=== PATIENT | male | born 1960 | race Caucasian/White ===

== ENCOUNTER 2019-07-09 15:44 | Emergency (ER) | payer BC ==
--- NOTE | 2019-07-09 16:18 | EDM.PDOC ---
ED HPI GENERAL MEDICAL PROBLEM - General Chief Complaint: Syncope Stated Complaint: FELL AND INJURED RIGHT HAND/THROWING UP Time Seen by Provider: 07/09/19 16:16 Source of Information: Reports: Patient History Limitations: Reports: No Limitations - History of Present Illness INITIAL COMMENTS - FREE TEXT/NARRATIVE: HISTORY AND PHYSICAL: History of present illness: Patient is a 58-year-old male who presents to the emergency room after a syncopal event. 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 He states the day was a normal day, he had eaten breakfast and drank his coffee. About an hour [employer] he had gone out to his garage to work on a vehicle. He states he had several episodes where he felt lightheaded and had to catch himself. He had went from a squatting position to standing and had a syncopal event, this was unwitnessed. He states his right fifth digit was dislocated and he was able to reduce it himself. At the time of the event he said he just felt "unwell" but denied any chest pain or shortness of breath. He states he immediately checked his blood sugar and it was 209. Currently he feels nauseated, generally unwell and having mild right fifth digit pain. He states he did have a previous syncopal event "many years ago" in which she did see a cuff setter overlock whom cleared from a cardiac standpoint; but was told if it happend again he would have to have a "tilt test". Patient denies any fever, chills, headache, change in vision. Denies any chest pain, back pain, shortness of breath or cough. Denies any abdominal pain, nausea , vomiting, diarrhea, constipation or dysuria. Has not noted any blood in urine or stool. Patient has been eating and drinking appropriately. Review of systems: As per history of present illness and below otherwise all systems reviewed and negative. Past medical history: As per history of present illness and as reviewed below otherwise noncontributory. Surgical history: As per history of present illness and as reviewed below otherwise noncontributory. Social history: See social history for further information Family history: As per history of present illness and as reviewed below otherwise noncontributory. Physical exam: General: Well-developed and well-nourished 58 her old male. Alert and oriented. Nontoxic appearing and no acute distress. HEENT: Nontender with palpation, normocephalic, pupils equal and reactive bilaterally, negative for conjunctival pallor or scleral icterus, mucous membranes moist, TMs normal bilaterally, throat clear, neck supple, nontender, trachea midline. No drooling or trismus noted. No meningeal signs. No hot potato voice noted. Lungs: Clear to auscultation, breath sounds equal bilaterally, chest nontender. Heart: S1S2, regular rate and rhythm without overt murmur Abdomen: Soft, nondistended, nontender. Negative for masses or hepatosplenomegaly. Negative for costovertebral tenderness. Pelvis: Stable nontender. C-spine/Back: No pinpoint vertebral tenderness upon palpation. No crepitus, step -offs or obvious deformities. Patient is ambulatory into the emergency room without difficulty or deficit. Able to rock back on heels and walk on toes. Denies any urinary or fecal incontinence. Denies any numbness, tingling or saddle paresthesia. Skin: Intact, warm, dry. No lesions or rashes noted. Extremities: Pain with palpation of the right fifth digit along with bruising around the MIP joint. Otherwise moves all extremities per self without difficulty or deficits. Neurovascular unremarkable. Neuro: Awake, alert, oriented. Cranial nerves II through XII unremarkable. Cerebellum unremarkable. Motor and sensory unremarkable throughout. Exam nonfocal. Notes: Lab work is unremarkable. Finger, chest and head CT are unremarkable. EKG is unremarkable. No change in orthostatic vitals. He states he does feel better at this time. I did offer him admission which he declines. He and his state they live approximately one block away and would like to be discharged to home. We reviewed signs and symptoms that would prompt him to return to the emergency room. Supportive care measures were reviewed and discussed. Voices understanding. Denies any further questions or concerns at this time. Diagnostics: CBC, CMP, UA, Troponin, EKG, CXR, Head CT, Orthostatic vital signs Therapeutics: IV fluids, aluminum splint/zoran taped Impression: Syncope Right 5th digit injury Plan: 1. Change positions slowly when gong from sitting to standing. Small frequent sips of fluids to prevent dehydration. 2. Tylenol and/or ibuprofen as needed for pain management. Wear splint for comfort. 3. Follow-up with your primary care provider as we discussed. Return to the ED as needed and as discussed. Definitive disposition and diagnosis as appropriate pending reevaluation and review of above. - Related Data Allergies Allergy/AdvReac Type Severity Reaction Status Date / Time No Known Allergies Allergy Verified 07/09/19 16:18 Home Meds: Home Meds Aspirin [Halfprin] 07/09/19 [History] Lisinopril 07/09/19 [History] Sertraline [Zoloft] 07/09/19 [History] Simvastatin 07/09/19 [History] glipiZIDE [Glucotrol XL] 07/09/19 [History] metFORMIN [Glucophage XR] 1,000 mg PO 07/09/19 [History] valACYclovir HCl [Valtrex] 07/09/19 [History] ED ROS GENERAL - Review of Systems Review Of Systems: Comprehensive ROS is negative, except as noted in HPI. - Physical Exam Exam: See Below (See dictation) Course - Vital Signs Last Recorded V/S: Last Vital Signs Temp Pulse 79 07/09/19 16:22 Resp 18 07/09/19 16:22 BP 96/60 07/09/19 16:22 Pulse Ox 95 07/09/19 16:22 Orthostatic Blood Pressure [ 106/65 Standing] Orthostatic Blood Pressure [ 113/66 Sitting] Orthostatic Blood Pressure [ 102/57 Supine] - Orders/Labs/Meds Orders: Active Orders 24 hr Category Date Time Status EKG Documentation Completion [RC] STAT Care 07/09/19 16:16 Active Orthostatic Vital Signs [RC] ASDIRECTED Care 07/09/19 16:16 Active Sodium Chloride 0.9% [Normal Saline] 1,000 ml Med 07/09/19 16:45 Active IV ASDIRECTED DME for Discharge [COMM] Stat Oth 07/09/19 17:38 Ordered Medication Orders Sodium Chloride (Normal Saline) 1,000 mls @ 999 mls/hr IV ASDIRECTED [facility] Last Admin: 07/09/19 17:03 Dose: 125 mls/hr Labs: Laboratory Tests 07/09/19 07/09/19 07/09/19 Range/Units 16:30 16:30 17:22 WBC 9.26 (4.0-11.0) K/uL RBC 4.53 (4.50-5.90) M/uL Hgb 14.4 (13.0-17.0) g/dL Hct 41.3 (38.0-50.0) % MCV 91.2 (80.0-98.0) fL MCH 31.8 (27.0-32.0) pg MCHC 34.9 (31.0-37.0) g/dL RDW Std Deviation 41.8 (28.0-62.0) fl RDW Coeff of Destiny 13 (11.0-15.0) % Plt Count 213 (150-400) K/uL MPV 10.40 (7.40-12.00) fL Neut % (Auto) 56.1 (48.0-80.0) % Lymph % (Auto) 27.8 (16.0-40.0) % [place] % (Auto) 13.2 (0.0-15.0) % Eos % (Auto) 2.5 (0.0-7.0) % Baso % (Auto) 0.4 (0.0-1.5) % Neut # (Auto) 5.2 (1.4-5.7) K/uL Lymph # (Auto) 2.6 H (0.6-2.4) K/uL [place] # (Auto) 1.2 H (0.0-0.8) K/uL Eos # (Auto) 0.2 (0.0-0.7) K/uL Baso # (Auto) 0.0 (0.0-0.1) K/uL Nucleated RBC % 0.0 /100WBC Nucleated RBCs # 0 K/uL Sodium 139 (136-148) mmol/L Potassium 3.9 (3.5-5.1) mmol/L Chloride 102 (98-107) mmol/L Carbon Dioxide 24.0 (21.0-32.0) mmol/L BUN 12 (7.0-18.0) mg/dL Creatinine 1.2 (0.8-1.3) mg/dL Est Cr Clr Drug Dosing 56.19 mL/min Estimated GFR (MDRD) > 60.0 ml/min Glucose 208 H (74-106) mg/dL Calcium 9.3 (8.5-10.1) mg/dL Total Bilirubin 0.5 (0.2-1.0) mg/dL AST 24 (15-37) IU/L ALT 39 (14-63) IU/L Alkaline Phosphatase 88 (46-116) U/L Troponin I < 0.050 (0.000-0.056) ng/mL Total Protein 7.8 (6.4-8.2) g/dL Albumin 4.4 (3.4-5.0) g/dL Globulin 3.4 (2.6-4.0) g/dL Albumin/Globulin Ratio 1.3 (0.9-1.6) Urine Color YELLOW Urine Appearance CLEAR Urine pH 6.0 (5.0-8.0) Ur Specific [place] 1.020 (1.001-1.035) Urine Protein NEGATIVE (NEGATIVE) mg/dL Urine Glucose (UA) 100 H (NEGATIVE) mg/dL Urine Ketones TRACE H (NEGATIVE) mg/dL Urine Occult Blood NEGATIVE (NEGATIVE) Urine Nitrite NEGATIVE (NEGATIVE) Urine Bilirubin NEGATIVE (NEGATIVE) Urine Urobilinogen 0.2 (<2.0) EU/dL Ur Leukocyte Esterase NEGATIVE (NEGATIVE) Meds: Medications Generic Name Dose Route Start Last Admin Trade Name Freq PRN Reason Stop Dose Admin Sodium Chloride 1,000 mls @ 999 mls/hr 07/09/19 16:45 07/09/19 17:03 Normal Saline IV 125 mls/hr ASDIRECTED HELDER Administration Discontinued Medications Generic Name Dose Route Start Last Admin Trade Name Freq PRN Reason Stop Dose Admin Ondansetron HCl 4 mg 07/09/19 16:28 07/09/19 16:39 Zofran IVPUSH 07/09/19 16:29 4 mg ONETIME ONE Administration Departure - Departure Time of Disposition: 18:46 Disposition: Home, Self-Care 01 Clinical Impression: Syncope Qualifiers: Syncope type: unspecified Qualified Code(s): R55 - Syncope and collapse Finger injury Qualifiers: Encounter type: initial encounter Laterality: right Qualified Code(s): S69.91XA - Unspecified injury of right wrist, hand and finger(s), initial encounter - Discharge Information Instructions: Syncope, [id number] Referrals: Yael Sanford MD [Primary Care Provider] - Forms: ED Department Discharge Additional Instructions: The following information is given to patients seen in the emergency department who are being discharged to home. This information is to outline your options for follow-up care. We provide all patients seen in our emergency department with a follow-up referral. The need for follow-up, as well as the timing and circumstances, are variable depending upon the specifics of your emergency department visit. If you don't have a primary care physician on staff, we will provide you with a referral. We always advise you to contact your personal physician following an emergency department visit to inform them of the circumstance of the visit and for follow-up with them and/or the need for any referrals to a consulting specialist. The emergency department will also refer you to a specialist when appropriate. This referral assures that you have the opportunity for follow-up care with a specialist. All of these measure are taken in an effort to provide you with optimal care, which includes your follow-up. Under all circumstances we always encourage you to contact your private physician who remains a resource for coordinating your care. When calling for follow-up care, please make the office aware that this follow-up is from your recent emergency room visit. If for any reason you are refused follow-up, please contact the [facility] Emergency Department at and asked to speak to the emergency department charge nurse. [facility] [address] [place] [address] [address] 1. Change positions slowly when gong from sitting to standing. Small frequent sips of fluids to prevent dehydration. 2. Tylenol and/or ibuprofen as needed for pain management. Wear splint for comfort. 3. Follow-up with your primary care provider as we discussed. Return to the ED as needed and as discussed. - My Orders Last 24 Hours: My Active Orders 07/09/19 16:16 EKG Documentation Completion [RC] STAT Orthostatic Vital Signs [RC] ASDIRECTED 07/09/19 16:45 Sodium Chloride 0.9% [Normal Saline] 1,000 ml IV ASDIRECTED 07/09/19 17:38 DME for Discharge [COMM] Stat - Assessment/Plan Last 24 Hours: My Active Orders 07/09/19 16:16 EKG Documentation Completion [RC] STAT Orthostatic Vital Signs [RC] ASDIRECTED 07/09/19 16:45 Sodium Chloride 0.9% [Normal Saline] 1,000 ml IV ASDIRECTED 07/09/19 17:38 DME for Discharge [COMM] Stat
[2019-07-09] MEDS ORDERED: Ondansetron 4 MG/2 ML SDV IVPUSH ONE (16:28)
[2019-07-09] MEDS ORDERED: Sodium Chloride 0.9% 1,000 ML IV SCH (16:45)
--- NOTE | 2019-07-09 17:04 | CT ---
INDICATION: Syncope TECHNIQUE: Non-contrast CT of the head is submitted. No comparisons. FINDINGS: The ventricles, sulci and gyri are of normal size, shape and contour. Midline structures are centrally located. No convincing evidence of intra- or extra-axial fluid collections. IMPRESSION: 1. No radiographic evidence of acute intracranial abnormalities. Dictated by Kyle Ceballos MD @ 07/09/2019 5:03:10 PM Please note that all CT scans at this facility use dose modulation, iterative reconstruction, and/or weight-based dosing when appropriate to reduce radiation dose to as low as reasonably achievable. Dictated by: Kyle Ceballos MD @ 07/09/2019 17:03:15 (Electronically Signed)
[2019-07-09 17:08] LABS: BLOOD UREA NITROGEN,BUN 12 mg/dL (7.0-18.0); CHLORIDE,CL 102 mmol/L (98-107); GLUCOSE RANDOM 208 mg/dL (74-106); POTASSIUM,K 3.9 mmol/L (3.5-5.1); SODIUM,NA 139 mmol/L (136-148)
--- NOTE | 2019-07-09 17:15 | CR ---
Indication: Syncope. Technique: This single AP portable view of the chest was obtained. Comparison: None Findings: The heart is normal in size. The lungs are clear. No infiltrate, pleural effusion, pneumothorax identified. Impression: No acute cardiopulmonary process. Dictated by Birgit Monroy MD @ Jul 09 2019 5:11PM Signed by Dr. Birgit Monroy @ Jul 09 2019 5:12PM
--- NOTE | 2019-07-09 17:15 | CR ---
Indication: Finger injury Technique: three views of the right 5th finger were obtained. Comparison: None Findings: Mild degenerative changes are identified. No fracture subluxation is identified. Impression: Mild degenerative change Dictated by Birgit Mnoroy MD @ Jul 09 2019 5:12PM Signed by Dr. Birgit Monroy @ Jul 09 2019 5:13PM
== END 2019-07-09 19:04 | disposition home or self-care (01) ==
LOC: MW.ED 15:44
DX: R55 Syncope and collapse (principal); S69.91XA Unspecified injury of right wrist, hand and finger(s), initial encounter; Z79.82 Long term (current) use of aspirin; Z79.899 Other long term (current) drug therapy; W19.XXXA Unspecified fall, initial encounter
CPT/HCPCS: 36415; 70450; 71045; 73140; 80053; 81003; 84484; 85025; 93005; 96361; 96374; 99284; J2405; J7040; 99283

== ENCOUNTER 2020-07-06 09:11 | Emergency (ER) | payer BC, OTHER ==
--- NOTE | 2020-07-06 09:36 | EDM.PDOC ---
ED HPI GENERAL MEDICAL PROBLEM - General Chief Complaint: Lower Extremity Injury/Pain Stated Complaint: POSSIBLE TORN ACHILLES TENDON Time Seen by Provider: 07/06/20 09:18 Source of Information: Reports: Patient, Old Records History Limitations: Reports: No Limitations - History of Present Illness INITIAL COMMENTS - FREE TEXT/NARRATIVE: This is a very pleasant 59-year-old male with past medical history of hypertension and type 2 diabetes mellitus presenting with an ankle injury. About 30 minutes prior to arrival, the patient was pushing some heavy carts at work when he felt a snap at the base of his left Achilles tendon. He is concerned that he may have torn the Achilles tendon. He has been able to ambulate, although with significant pain. He did not take any pain medications prior to arrival. He did not fall or sustain any other injuries. He has no other complaints at this point. Past medical history: Reviewed, no additional pertinent history. Surgical history: Reviewed in system, no additional pertinent history. Social history: Reviewed in system, no additional pertinent history. Family history: Reviewed in system, no additional pertinent history. PHYSICAL EXAM Vital signs reviewed. Nursing notes reviewed. Constitutional: Awake, alert, non-distressed. Head: Normocephalic, atraumatic. Eyes: EOMI, conjunctiva normal, no discharge, no scleral icterus. Ears, Nose, Throat: External ears and nose normal, moist oral mucosa. Cardiovascular: 2+ left DP pulse, capillary refill less than 2 seconds in the left foot. Pulmonary: normal work of breathing, no accessory muscle use. Musculoskeletal: No deformities. Moderate tenderness to palpation at the insertion of the left Achilles tendon. The left Achilles tendon is intact by palpation and there is no swelling or fullness over the area of the Achilles tendon. No tenderness to palpation of the left medial or lateral malleoli. No effusion or deformity to the left ankle joint. Negative Gonzalez test in LLE. Integumentary: Appropriate color for ethnicity, warm, dry, no pallor or jaundice, no rash. Neurologic: Alert, answering questions appropriately, normal speech, no facial droop, moving all extremities well. Antalgic gait. Psychiatric: Appropriate mood and affect, normal thought process. This patient was seen and evaluated during the 2019 SARS-CoV-2 novel coronavirus pandemic period. Community viral transmission is ongoing at time of this encounter and the emergency department is operating under pandemic response procedures. left ankle Pain Score (Numeric/FACES): 5 - Related Data Allergies Allergy/AdvReac Type Severity Reaction Status Date / Time No Known Allergies Allergy Verified 07/06/20 09:35 Home Meds: Home Meds Aspirin [Halfprin] 81 mg PO DAILY 07/09/19 [History] Sertraline [Zoloft] 100 mg PO DAILY 07/09/19 [History] Simvastatin 20 mg PO BEDTIME 07/09/19 [History] glipiZIDE [Glucotrol XL] 5 mg PO BIDMEALS 07/09/19 [History] lisinopriL [Lisinopril] 2.5 mg PO DAILY 07/09/19 [History] metFORMIN [Glucophage XR] 1,000 mg PO BID 07/09/19 [History] valACYclovir HCl [Valtrex] 500 mg PO DAILY 07/09/19 [History] Past Medical History Endocrine/Metabolic History: Reports: Diabetes, Type II Social & Family History - Family History Family Medical History: No Pertinent Family History Review of Systems - Review of Systems Review Of Systems: See Below ED EXAM, GENERAL - Physical Exam Exam: See Below Course - Vital Signs Text/Narrative:: Patient hemodynamically stable, afebrile, well-appearing, looks nontoxic. Differential diagnosis includes but is not limited to: Achilles tendon strain, partial Achilles tendon rupture, less likely fracture, avulsion fracture, etc. 9:30 AM: Patient is neurovascularly intact in the left lower extremity. We will obtain x-rays of the left ankle to evaluate for an avulsion fracture. The Achilles tendon does appear to be at least partially intact by physical examination. Negative Gonzalez test. Patient declined oral pain medications. 10:43 AM: X-rays demonstrate no fracture, spurring at the insertion of the Achilles tendon, no other acute findings. Given degree of pain, I suspect Achilles tendon strain versus partial tear. Patient will be given a walking boot. He has a cane at home that he wants to use instead of crutches. Stable to discharge home with outpatient primary care follow-up. Recommended [id number] acetaminophen as needed for pain. Plan: Patient is stable to discharge home with outpatient primary care clinic follow-up. Strict emergency department return precautions were provided, patient indicated understanding. All questions were answered prior to departure. Discharged in good condition. DME for discharge: Left walking boot. Indication: Partial Achilles tendon rupture. Duration: 1 month. Last Recorded V/S: Last Vital Signs Temp 36.6 C 07/06/20 09:25 Pulse 91 07/06/20 09:25 Resp 16 07/06/20 09:25 BP 137/68 07/06/20 09:25 Pulse Ox 95 07/06/20 09:25 - Orders/Labs/Meds Orders: Active Orders 24 hr Category Date Time Status DME for Discharge [COMM] Stat Oth 07/06/20 10:24 Ordered Departure - Departure Time of Disposition: 10:44 Disposition: Home, Self-Care 01 Condition: Good Clinical Impression: Partial tear of left Achilles tendon Qualifiers: Encounter type: initial encounter Qualified Code(s): S86.012A - Strain of left Achilles tendon, initial encounter - Discharge Information *PRESCRIPTION DRUG MONITORING PROGRAM REVIEWED*: Not Applicable *COPY OF PRESCRIPTION DRUG MONITORING REPORT IN PATIENT MARISSA: Not Applicable Instructions: Achilles Tendon Tear Referrals: [facility] [Provider Group] Forms: ED Department Discharge Additional Instructions: You were seen in the emergency department for a left foot injury. I suspect that you have a partial tear of your left Achilles tendon. Your x-rays did not show any broken bones. I would like for you to follow-up with you orthopedic surgery clinic in the next 1 to 2 weeks for reevaluation. In the meantime we are going to give you a walking boot and crutches. You can take [id number] acetaminophen extra strength as directed on the package for pain. You could also elevate your injured ankle at night while you are at home. I would not do any strenuous moves or exercises in the meantime until you have followed up with the orthopedic surgery clinic. Warning signs to come back to the ER include: Worsening pain, redness or swelling of the foot or ankle, or any other new or concerning symptoms. Please return the emergency department immediately if your symptoms worsen or if you feel worse. Thank you for choosing the [facility] emergency department in [place] for your medical needs today. It was a pleasure caring for you. The following information is given to patients seen in the emergency department who are being discharged. This information is to outline your options for follow-up care. We provide all patients seen in our emergency department with a follow-up referral. The need for follow-up, as well as the timing and circumstances, are variable depending upon the specifics of your emergency department visit. If you don't have a primary care physician on staff, we will provide you with a referral. We always advise you to contact your personal physician following an emergency department visit to inform them of the circumstance of the visit and for follow-up with them and/or the need for any referrals to a consulting specialist. The emergency department will also refer you to a specialist when appropriate. This referral assures that you have the opportunity for follow-up care with a specialist. All of these measure are taken in an effort to provide you with optimal care, which includes your follow-up. Under all circumstances we always encourage you to contact your private physician who remains a resource for coordinating your care. When calling for follow-up care, please make the office aware that this follow-up is from your recent emergency room visit. If for any reason you are refused follow-up, please contact the [facility] Emergency Department at and asked to speak to the emergency department charge nurse. If you do not have a primary care physician that is caring for you, you can contact these clinics below to set up an appointment to establish care: [facility] - Primary Care [address] [place] [id number] [facility] [address] [place] [id number] Sepsis Event Note (ED) - Focused Exam Vital Signs: Vital Signs Temp Pulse Resp BP Pulse Ox 07/06/20 09:25 36.6 C 91 16 137/68 95 - My Orders Last 24 Hours: My Active Orders 07/06/20 10:24 DME for Discharge [COMM] Stat - Assessment/Plan Last 24 Hours: My Active Orders 07/06/20 10:24 DME for Discharge [COMM] Stat
--- NOTE | 2020-07-06 10:38 | CR ---
Indication: Pain at insertion of Achilles tendon. Technique: Ankle left AP and lateral 2 views Comparison: None Findings: Bones: Normal alignment. No fracture. There is spurring at the insertion of the Achilles tendon. Minimal plantar calcaneal spur also present. No other osseous abnormality. Joint spaces: Unremarkable. Soft tissues: Unremarkable. Dictated by Antelmo Meek MD @ Jul 06 2020 10:34AM Signed by Dr. Antelmo Meek @ Jul 06 2020 10:37AM
== END 2020-07-06 11:05 | disposition home or self-care (01) ==
LOC: MW.ED 09:11
DX: S86.022A Laceration of left Achilles tendon, initial encounter (principal); E11.9 Type 2 diabetes mellitus without complications; I10 Essential (primary) hypertension; Z79.899 Other long term (current) drug therapy; X50.0XXA Overexertion from strenuous movement or load, initial encounter; Y92.89 Other specified places as the place of occurrence of the external cause; Y99.0 Civilian activity done for income or pay
CPT/HCPCS: 73600-26-LT; 73600-LT; 99282; 99283